=== PATIENT | female | born 1965 | race Asian ===

== ENCOUNTER 2017-10-14 13:02 | Outpatient (CLI) | payer OTHER ==
--- NOTE | 2017-10-20 14:18 | MMO ---
BILATERAL MAMMOGRAMS: DATE: 10/14/17 HISTORY: Screening mammography. COMPARISON: Multiple exams back to 01/31/09. FINDINGS: Heterogeneously dense fibroglandular tissue is again demonstrated. There is no dominant mass or suspi cious calcifications. The study was evaluated with the assistance of computer-aided detection. IMPRESSION: BIRADS 1: Negative Suggest routine follow-up. POS: TANISHA
== END 2017-10-14 13:03 | disposition home or self-care (01) ==
LOC: SCSMAMMO 13:02
PROVIDERS: ATTEND Family Medicine
DX: Z12.31 Encounter for screening mammogram for malignant neoplasm of breast (principal)
CPT/HCPCS: 77067

== ENCOUNTER 2018-11-03 13:02 | Outpatient (CLI) | payer OTHER ==
--- NOTE | 2018-11-03 14:46 | MMO ---
Bilateral MAMMO Bilat Screen [facility]. CLINICAL HISTORY: Patient is 53 years old and is seen for screening. The patient has no family history of breast cancer. The patient has no personal history of cancer. VIEWS: The views performed were: bilateral craniocaudal and bilateral mediolateral oblique. FILMS COMPARED: The present examination has been compared to prior imaging studies performed at [facility] on 10/14/2017, at [facility] on 01/31/2009, and at [facility] on 06/11/2015 and 07/15/2016. This study has been interpreted with the assistance of computer-aided detection. MAMMOGRAM FINDINGS: The breasts are heterogeneously dense, which could obscure a lesion on mammography. There are no suspicious masses, suspicious calcifications, or new areas of architectural distortion. IMPRESSION: THERE IS NO MAMMOGRAPHIC EVIDENCE OF MALIGNANCY. A ROUTINE FOLLOW-UP MAMMOGRAM IN 1 YEAR IS RECOMMENDED. ACR BI-RADS Category 1 - Negative MAMMOGRAPHY NOTE: 1. A negative mammogram report should not delay a biopsy if a dominant of clinically suspicious mass is present. 2. Approximately 10% to 15% of breast cancers are not detected by mammography. 3. Adenosis and dense breasts may obscure an underlying neoplasm.
== END 2018-11-03 13:03 | disposition home or self-care (01) ==
LOC: SCSMAMMO 13:02
PROVIDERS: ATTEND Obstetrics & Gynecology
DX: Z12.31 Encounter for screening mammogram for malignant neoplasm of breast (principal)
CPT/HCPCS: 77067